=== PATIENT | male | born 1980 | race Caucasian/White ===

== ENCOUNTER 2016-07-24 08:43 | Emergency (ER) | payer MEDICAID ==
--- NOTE | 2016-07-24 08:58 | Emergency Department Record ---
History of Present Illness - General Chief Complaint: Fever Stated Complaint: FEVER/COUGHING/SOB Time Seen by Provider: 07/24/16 08:53 Source: Patient Mode of Arrival: Ambulatory Limitations: No limitations - History of Present Illness Initial Comments: 36 yo male presents not feeling welling well since Wednesday. He has a history of asthma. He has had cough, aches, fever, headaches, congestion. He does not feel significant wheezing. He did not get a flu shot this year. MD Complaint: Fever, Other (Cough) Onset/Timin -: Days(s) Maximum Temperature: 102 F Temperature Source: Oral Associated Symptoms: Chills, Cough, Headache, Nasal congestion, Shortness of breath Treatments Prior to Arrival: Ibuprofen Treatment Prior to Arrival Comment:: Motrin at 0730 - Related Data Previous Rx's Medication Instructions Recorded Albuterol Sulfate [Ventolin Hfa] 1 - 2 puff IH .EVERY 4-6 HOURS PRN 03/20/16 #1 inhaler Oseltamivir Phosphate [Tamiflu] 75 mg PO BID #10 capsule 07/24/16 Prednisone [Prednisone 20Mg] 20 mg PO BID #10 tab 07/24/16 Allergies Allergy/AdvReac Type Severity Reaction Status Date / Time No Known Drug Allergies Allergy Verified 07/24/16 08:51 Travel Screening - Travel/Exposure Within Last 30 Days Have you traveled within the last 30 days?: No Review of Systems Constitutional: Reports: Fever. Denies: Chills, Malaise, Weakness, Other Eyes: Denies: Eye discharge, Eye pain, Photophobia ENT: Reports: Congestion, Throat pain Respiratory: Reports: Cough. Denies: Dyspnea, Hemoptysis, Stridor, Wheezes Cardiovascular: Denies: Chest pain, Palpitations, Syncope Endocrine: Denies: Fatigue Gastrointestinal: Denies: Abdominal pain, Diarrhea, Nausea, Vomiting Musculoskeletal: Reports: Myalgia. Denies: Joint swelling Skin: Denies: Bruising, Change in color, Rash Neurological: Reports: Headache. Denies: Confusion, Numbness, Vertigo, Weakness Psychiatric: Denies: Anxiety Hematological/Lymphatic: Denies: Blood Clots, Easy bleeding, Easy bruising, Swollen glands Past Medical History - SOCIAL HISTORY Smoking Status: Never smoker Alcohol Use: None Drug Use: None - RESPIRATORY Hx Respiratory Disorders: Yes Hx Asthma: Yes Hx Bronchitis: Yes Hx Pneumonia: Yes - CARDIOVASCULAR Hx Cardio Disorders: No - NEURO Hx Neuro Disorders: No - GI Hx GI Disorders: No - Hx Genitourinary Disorders: No - ENDOCRINE Hx Endocrine Disorders: No - MUSCULOSKELETAL Hx Musculoskeletal Disorders: No - PSYCH Hx Psych Problems: No - HEMATOLOGY/ONCOLOGY Hx Hematology/Oncology Disorders: No Family Medical History Any Significant Family History?: Yes Hx Diabetes: Mother Hx Heart Disease: Mother Physical Exam - General General Appearance: Alert, Oriented x3, Cooperative, No acute distress Limitations: No limitations - Head Head exam: Normal inspection - Eye Eye exam: Normal appearance, PERRL. negative: Conjunctival injection, Scleral icterus - ENT ENT exam: Normal exam, Mucous membranes moist, Normal orophraynx, TM's normal bilaterally Ear exam: Normal external inspection. negative: External canal tenderness Nasal Exam: Discharge (clear) Mouth exam: Normal external inspection, Tongue normal Teeth exam: Normal inspection. negative: Dental caries Throat exam: Normal inspection. negative: Tonsillar erythema, Tonsillomegaly, Tonsillar exudate, R peritonsillar mass, L peritonsillar mass - Neck Neck exam: Normal inspection, Full ROM. negative: Tenderness - Respiratory Respiratory exam: Decreased breath sounds, Rhonchi, Wheezes (very mild expiratory). negative: Normal lung sounds bilaterally, Chest wall tenderness, Respiratory distress (calm and non labored) - Cardiovascular Cardiovascular Exam: Regular rate, Normal rhythm, Normal heart sounds Peripheral Pulses: 2+: Radial (R), Radial (L) - GI/Abdominal GI/Abdominal exam: Soft. negative: Distended - Rectal Rectal exam: Deferred - exam: Deferred - Extremities Extremities exam: Normal inspection, Full ROM, Normal capillary refill. negative: Tenderness - Back Back exam: Reports: Normal inspection, Full ROM. Denies: Muscle spasm, Rash noted, Tenderness - Neurological Neurological exam: Alert, Normal gait, Oriented X3 - Psychiatric Psychiatric exam: Normal affect, Normal mood. negative: Anxious, Depressed - Skin Skin exam: Dry, Intact, Normal color, Warm. negative: Erythema Course Vital Signs 07/24/16 08:45 Temperature 98.2 F Pulse Rate 88 Respiratory 20 Rate Blood Pressure 138/83 Pulse Ox 94 L - Reevaluation(s) Reevaluation #1: The patient was seen and examined No acute distress Influenza swab, CXR and Duoneb ordered 07/24/16 08:59 Reevaluation #2: Influenza B positive 07/24/16 09:19 Reevaluation #3: The CXR was reviewed No acute process on my reviewed I discussed the results with the patient RX provided for Tamiflu 07/24/16 09:37 Disposition Disposition: Discharge Clinical Impression: Influenza B Disposition: Home, Self-Care Condition: (1) Good Instructions: Influenza (ED) Additional Instructions: Stay well hydrated Return if worse You are very contagious Tamiflu twice daily for 5 days Prescriptions: Prednisone [Prednisone 20Mg] 20 mg PO BID #10 tab Oseltamivir Phosphate [Tamiflu] 75 mg PO BID #10 capsule Forms: Patient Portal Access Time of Disposition: 09:21
[2016-07-24] MEDS ORDERED: PREDNISONE 20 MG TAB PO ONE (08:59)
[2016-07-24] MEDS ORDERED: IPRATROPIUM/ALBUTEROL (0.5MG/3MG) NEB INH ONE (08:59)
[2016-07-24 09:17] LABS: INFLUENZA A NEGATIVE (NEGATIVE); INFLUENZA B POSITIVE (NEGATIVE)
--- NOTE | 2016-07-29 09:54 | RADIOLOGY REPORT ---
EXAM: CHEST, TWO VIEWS HISTORY: COUGH AND FEVER. TECHNIQUE: Upright PA and lateral views of the chest were obtained. Comparison: Two view chest radiographic examination dated 03/20/16. FINDINGS: The cardiomediastinal silhouette is normal in size and configuration. The pulmonary vasculature is nondilated. The lungs and pleural spaces are clear. The osseous structures are intact. IMPRESSION: NO RADIOGRAPHIC EVIDENCE OF ACUTE CARDIOPULMONARY DISEASE WITHOUT CHANGE SINCE 03/20/16. JOB NUMBER: [id number] MTDD
== END 2016-07-24 09:46 | disposition home or self-care (01) ==
LOC: ER 08:43
DX: J10.1 Influenza due to other identified influenza virus with other respiratory manifestations (principal); R06.02 Shortness of breath
CPT/HCPCS: 99283; 99284; 87400; 71020; 94640; J7512

== ENCOUNTER 2017-04-24 20:31 | Emergency (ER) | payer MEDICAID ==
--- NOTE | 2017-04-24 20:42 | Emergency Department Record ---
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 Patient reports that he is concerned about possible CO poisoning, denies chest pain or recent illness. Patient reports a history of asthma, denies previous heart problems or arrhythmias. MD Complaint: Dizziness Onset/Timin -: Minutes(s) Description: Lightheadedness, Nausea History of Same: No History of Trauma: No Severity: Moderate Improves With: Nothing Worsens With: Nothing Associated Symptoms: Denies other symptoms - Blank Coma Scale Eye Response: (4) Open spontaneously Motor Response: (6) Obeys commands Verbal Response: (5) Oriented [place]ott Total: 15 - Related Data Previous Rx's Medication Instructions Recorded Albuterol Sulfate [Ventolin Hfa] 1 - 2 puff IH .EVERY 4-6 HOURS PRN 03/20/16 #1 inhaler Allergies Allergy/AdvReac Type Severity Reaction Status Date / Time No Known Drug Allergies Allergy Verified 07/24/16 08:51 Review of Systems Constitutional: Denies: Chills, Fever, Malaise, Night sweats Eyes: Denies: Eye discharge, Eye pain ENT: Denies: Congestion, Ear pain, Epistaxis Respiratory: Denies: Cough, Dyspnea Cardiovascular: Denies: Chest pain, Dyspnea on exertion Endocrine: Denies: Fatigue, Heat or cold intolerance Gastrointestinal: Reports: Nausea. Denies: Vomiting Musculoskeletal: Denies: Arthralgia, Back pain, Gout, Joint swelling Skin: Denies: Bruising, Change in color Neurological: Reports: Headache, Vertigo. Denies: Abnormal gait, Confusion, Seizure Psychiatric: Denies: Anxiety Hematological/Lymphatic: Denies: Anemia, Blood Clots Past Medical History - SOCIAL HISTORY Smoking Status: Never smoker Drug Use: None - RESPIRATORY Hx Respiratory Disorders: Yes Hx Asthma: Yes Hx Bronchitis: Yes Hx Pneumonia: Yes - CARDIOVASCULAR Hx Cardio Disorders: No - NEURO Hx Neuro Disorders: No - GI Hx GI Disorders: No - Hx Genitourinary Disorders: No - ENDOCRINE Hx Endocrine Disorders: No - MUSCULOSKELETAL Hx Musculoskeletal Disorders: No - PSYCH Hx Psych Problems: No - HEMATOLOGY/ONCOLOGY Hx Hematology/Oncology Disorders: No Family Medical History Hx Diabetes: Mother Hx Heart Disease: Mother Physical Exam - General General Appearance: Alert, Oriented x3, Cooperative, Mild distress Limitations: No limitations - Head Head exam: Atraumatic, Normocephalic, Normal inspection Head exam detail: negative: Abrasion, Contusion, Short's sign, General tenderness, Hematoma, Laceration - Eye Eye exam: Normal appearance. negative: Conjunctival injection, Periorbital swelling, Periorbital tenderness, Scleral icterus - ENT Ear exam: negative: Auricular hematoma, Auricular trauma Nasal Exam: negative: Active bleeding, Discharge, Dried blood, Foreign body Mouth exam: negative: Drooling, Laceration, Muffled voice, Tongue elevation - Neck Neck exam: Normal inspection. negative: Meningismus, Tenderness - Respiratory Respiratory exam: Normal lung sounds bilaterally. negative: Rales, Respiratory distress, Rhonchi, Stridor - Cardiovascular Cardiovascular Exam: Regular rate, Normal rhythm, Normal heart sounds - GI/Abdominal GI/Abdominal exam: Soft. negative: Rebound, Rigid, Tenderness - Rectal Rectal exam: Deferred - exam: Deferred - Extremities Extremities exam: Normal inspection. negative: Calf tenderness, Pedal edema, Tenderness - Back Back exam: Denies: CVA tenderness (R), CVA tenderness (L) - Neurological Neurological exam: Alert, Normal gait, Oriented X3 - Psychiatric Psychiatric exam: Normal affect, Normal mood - Skin Skin exam: Normal color. negative: Abrasion Type of lesion: negative: abrasion Course - Reevaluation(s) Reevaluation #1: 04/24/17 20:41 Patient was seen and examined, treatment with NRB mask initiated in ED pending laboratory results. EKG: NSR 90 Normal axis, normal intervals T wave inversion III only, no other acute changes noted. Reevaluation #2: 04/24/17 21:32 CO level reported to be 21.1. Patient was updated on all results including the CO level, reports that he is feeling much better (headache has almost completely resolved, denies chest pain, dizziness and nausea have resolved). Will repeat the level in 1 hour with a goal of <10%. Reevaluation #3: 04/24/17 22:28 repeat CO level is 14.1, patient continues to clinically improve. Will redraw 3rd level in approximately 1 hours with a goal of <10%. Patient and his SO agree with the plan as discussed. Reevaluation #4: 04/24/17 23:44 Repeat CO level is down to 10.5. Patient reports that he is feeling back to his baseline and appears stable for discharge at this time. Medical Decision Making - Lab Data Result diagrams: 04/24/17 20:37 04/24/17 20:37 Critical Care Time Critical Care Time: Yes Total Critical Care Time: 60 Critical Care Time: Frequent reassessment and consideration for hyperbaric transfer, multiple CO laboratory draws. Disposition Disposition: Discharge Clinical Impression: Carbon monoxide poisoning Qualifiers: Encounter type: initial encounter Injury intent: accidental or unintentional Qualified Code(s): T58.91XA - Toxic effect of carbon monoxide from unspecified source, accidental (unintentional), initial encounter Disposition: Home, Self-Care Condition: (2) Stable Instructions: Carbon Monoxide Poisoning (ED) Additional Instructions: Return to ED if your symptoms worsen or if you have any concerns. Follow-up with your family doctor in 1-3 days as directed. Work in well-ventilated areas. Forms: Patient Portal Access Time of Disposition: 23:44 Quality - Quality Measures Quality Measures: N/A - Blood Pressure Screening Does Patient Have Any of the Following: No Blood Pressure Classification: Pre-Hypertensive BP Reading Systolic Measurement: 137 Diastolic Measurement: 86 Screening for High Blood Pressure: < Pre-Hypertensive BP, F/U Documented > [ G8950] Pre-Hypertensive Follow-up Interventions: Referral to alternative/primary care provider.
[2017-04-24 20:48] LABS: BASO % 0.5 % (0-6); EOS % 1.7 % (0-6); GRAN % 58.4 % (47-80); HEMATOCRIT 44.5 % (42.0-52.0); HEMOGLOBIN 15.6 gm/dl (14.0-18.0); MEAN CORPUSCULAR HEMOGLOBIN 28.7 pg (27-33); MEAN CORPUSCULAR HGB CONC 35.1 g/dl (32-36); MEAN PLATELET VOLUME 10.1 fl (7.4-10.4); MONO % 9.4 % (0-9); PLATELET COUNT 223 K/uL (130-400); RED BLOOD COUNT 5.43 M/uL (4.40-5.70); RED CELL DISTRIBUTION WIDTH 13.3 % (11.5-14.5); WHITE BLOOD COUNT W/O DIFF 8.3 K/uL (4.2-12.2)
[2017-04-24 20:58] LABS: BLOOD UREA NITROGEN 15 mg/dL (6-20); CREATININE 1.1 mg/dL (0.7-1.2); EST GLOMERULAR FILTRATION RATE > 60 mL/min; TOTAL PROTEIN 7.8 g/dL (6.6-8.7)
[2017-04-24 21:01] LABS: GLUCOSE,RANDOM 85 mg/dL (74-109)
[2017-04-24 21:03] LABS: ALB/GLOB RATIO 1.4 (1.1-1.8); ALBUMIN 4.5 g/dL (4.0-5.0); ALKALINE PHOSPHATASE 89 U/L (40-129); ALT/SGPT 39 U/L (<41)
[2017-04-24 21:16] LABS: AST/SGOT 24 U/L (10.0-50.0)
== END 2017-04-24 23:56 | disposition home or self-care (01) ==
LOC: ER 20:31
DX: T58.8X1A Toxic effect of carbon monoxide from other source, accidental (unintentional), initial encounter (principal); R42 Dizziness and giddiness; R51 Headache; R11.0 Nausea; Y92.71 Barn as the place of occurrence of the external cause
CPT/HCPCS: 80053; 82375; 85025; 93005; 93010; 99284

== ENCOUNTER 2018-02-17 17:21 | Emergency (ER) | payer BC, MEDICAID ==
[2018-02-17] MEDS ORDERED: PROPARACAINE HCL OPTH 15ML BTL OPTH ONE (17:51)
--- NOTE | 2018-02-17 17:55 | Emergency Department Record ---
History of Present Illness - General Chief complaint: Weakness Stated complaint: LFT SIDE FACIAL NUMBNESS, DROOPY Time Seen by Provider: 02/17/18 17:44 Source: Patient Mode of Arrival: Ambulatory Limitations: No limitations - History of Present Illness Initial comments: The patient is here due to L facial weakness for 2-3 days. He has felt that he has had a funny taste to the L side of his tongue for a day prior and his L eye has been watering a lot. There is no LANDRY, arm or leg numbness, weakness, or any balance issues. MD Complaint: Focal weakness Onset/Timin -: Days(s) Location: Face Severity: Mild Severity scale (1-10): 5 Quality: Other Consistency: Constant Improves with: None Worsens with: None Associated Symptoms: Denies other symptoms - Gerber Coma Scale Eye Response: (4) Open spontaneously Motor Response: (6) Obeys commands Verbal Response: (5) Oriented Gerber Total: 15 - Related Data Previous Rx's Medication Instructions Recorded Prednisone [Prednisone 20Mg] 20 mg PO DAILY #24 tab 02/17/18 Valacyclovir HCl [Valacyclovir] 1,000 mg PO TID #42 tablet 02/17/18 Allergies Allergy/AdvReac Type Severity Reaction Status Date / Time No Known Drug Allergies Allergy Verified 02/17/18 17:37 Travel Screening - Travel/Exposure Within Last 30 Days Have you traveled within the last 30 days?: No - Travel/Exposure Within Last Year Have you traveled outside the [place] in the last year?: No - Additonal Travel Details Have you been exposed to anyone with a communicable illness?: No - Travel Symptoms Symptom Screening: None Review of Systems Constitutional: Denies: Chills, Fever Eyes: Denies: Eye discharge ENT: Denies: Congestion Respiratory: Denies: Cough, Dyspnea Cardiovascular: Denies: Arrhythmia Endocrine: Denies: Fatigue Gastrointestinal: Denies: Melena Genitourinary: Denies: Dysuria Musculoskeletal: Denies: Back pain Past Medical History - SOCIAL HISTORY Smoking Status: Never smoker Alcohol Use: Rare Drug Use: None - RESPIRATORY Hx Respiratory Disorders: Yes Hx Asthma: Yes Hx Bronchitis: Yes Hx Pneumonia: Yes - CARDIOVASCULAR Hx Cardio Disorders: No - NEURO Hx Neuro Disorders: No - GI Hx GI Disorders: No - Hx Genitourinary Disorders: No - ENDOCRINE Hx Endocrine Disorders: No - MUSCULOSKELETAL Hx Musculoskeletal Disorders: No - PSYCH Hx Psych Problems: No - HEMATOLOGY/ONCOLOGY Hx Hematology/Oncology Disorders: No Family Medical History Any Significant Family History?: Yes Hx Diabetes: Mother Hx Heart Disease: Mother Physical Exam - General General Appearance: Alert, Oriented x3, Cooperative, No acute distress - Head Head exam: Atraumatic, Normocephalic, Normal inspection - Eye Eye exam: Normal appearance, PERRL, EOMI, Other (L eye cornea is neg for flourescein uptake.). negative: Conjunctival injection - ENT ENT exam: Normal exam, Mucous membranes moist, Normal external ear exam, Normal orophraynx, TM's normal bilaterally Throat exam: Normal inspection. negative: Tonsillar erythema, Tonsillar exudate - Neck Neck exam: Normal inspection, Full ROM. negative: Tenderness - Respiratory Respiratory exam: Normal lung sounds bilaterally. negative: Respiratory distress - Cardiovascular Cardiovascular Exam: Regular rate, Normal rhythm, Normal heart sounds - Extremities Extremities exam: Normal inspection, Full ROM, Normal capillary refill. negative: Tenderness - Neurological Neurological exam: Alert, Motor sensory deficit (There is a peripheral L 7th nerve palsey.), Normal gait, Oriented X3, Reflexes normal, Other (Neg Drift and Rhomberg.). 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 He is to take the medicines and see his doctor for recheck next week. 02/17/18 18:53 Medical Decision Making - Data Complexity MDM Data: Labs Ordered and/or Reviewed, X-Ray Ordered and/or Reviewed - Lab Data Result diagrams: 02/17/18 18:25 02/17/18 18:25 - Radiology Data Radiology results: Report reviewed (Head CT: Neg.) Disposition Disposition: Discharge Clinical Impression: Walsh's palsy Disposition: Home, Self-Care Condition: (2) Stable Instructions: Walsh Palsy (ED) Additional Instructions: Please use Artificial tears to the L eye during the day and make sure the eye is shut at night. Please take the Antiviral medicine along with the Prednisone. Please see your family doctor for recheck early next week. Return to the ER for any worsening symptoms. Prescriptions: Prednisone [Prednisone 20Mg] 20 mg PO DAILY #24 tab Valacyclovir HCl [Valacyclovir] 1,000 mg PO TID #42 tablet Forms: Patient Portal Access Time of Disposition: 18:58 Quality - Quality Measures Quality Measures: N/A - Blood Pressure Screening View Details: Yes Does Patient Have Any of the Following: No Blood Pressure Classification: Hypertensive Reading Systolic Measurement: 143 Diastolic Measurement: 92 Screening for High Blood Pressure: < First Hypertensive BP, F/U Documented > [ G8950] First Hypertensive Follow-up Interventions: Referral to alternative/primary care provider.
[2018-02-17 18:29] LABS: BASO % 0.4 % (0-6); EOS % 3.5 % (0-6); GRAN % 56.1 % (47-80); HEMATOCRIT 46.7 % (42.0-52.0); HEMOGLOBIN 15.8 gm/dl (14.0-18.0); MEAN CELL VOLUME 82.5 fl (81-97); MEAN CORPUSCULAR HEMOGLOBIN 27.9 pg (27-33); MEAN CORPUSCULAR HGB CONC 33.8 g/dl (32-36); MEAN PLATELET VOLUME 10.1 fl (7.4-10.4); PLATELET COUNT 199 K/uL (130-400); RED BLOOD COUNT 5.66 M/uL (4.40-5.70); RED CELL DISTRIBUTION WIDTH 13.5 % (11.5-14.5); WHITE BLOOD COUNT W/O DIFF 6.8 K/uL (4.2-12.2)
[2018-02-17 18:44] LABS: BLOOD UREA NITROGEN 14 mg/dL (6-20); EST GLOMERULAR FILTRATION RATE > 60 mL/min
[2018-02-17 18:46] LABS: GLUCOSE,RANDOM 112 mg/dL (74-109)
--- NOTE | 2018-02-21 13:40 | CT SCAN REPORT ---
EXAM: CT OF THE HEAD WITHOUT IV CONTRAST HISTORY: LEFT FACIAL DROOP TODAY. TECHNIQUE: Helical CT scan of the head was obtained without intravenous contrast with sagittal and coronal reformatted images obtained. Comparison: None. Hand dominance: Right. FINDINGS: No evidence of hemorrhage, extraaxial fluid collection, or major vessel infarction. The dixon white matter differentiation is maintained. The ventricles are normal. The basal cisterns are patent. No mass effect or midline shift. The calvarium is intact. The paranasal sinuses and middle ear cavities are well aerated. IMPRESSION: NO ACUTE INTRACRANIAL ABNORMALITIES. JOB NUMBER: [id number] [facility]
== END 2018-02-17 19:12 | disposition home or self-care (01) ==
LOC: ER 17:21
DX: G51.0 Bell's palsy (principal)
CPT/HCPCS: 70450; 80048; 85025; 99283